=== PATIENT | female | born 1945 | race Hispanic/Latino ===

== ENCOUNTER 2018-01-13 16:33 | Inpatient (IN) | payer MEDICARE, OTHER ==
[2018-01-13 16:35] VITALS: BMI 24.5
[2018-01-13 17:28] LABS: BASO # 0.03 K/mm3 (0.0-2.0); BASO % 0.4 % (0.0-3.0); EOS # 0.2 (0.0-0.7); GRAN # 5.51 (1.4-6.5); GRAN % 73.1 % (50.0-68.0); HEMOGLOBIN 11.8 g/dL (12.0-16.0); LYMPH # 1.4 (1.2-3.4); LYMPH % 18.8 % (22.0-35.0); MEAN CELL VOLUME 91.6 fl (80.0-105.0); MEAN CORPUSCULAR HEMOGLOBIN 30.2 pg (25.0-35.0); MEAN PLATELET VOLUME 10.8 fl (7.0-11.0); MONO # 0.4 (0.1-0.6); MONO % 5.7 % (1.0-6.0); RBC 3.91 10^6/uL (3.5-6.1); RED CELL DISTRIBUTION WIDTH 15.1 % (11.5-14.5); WHITE BLOOD COUNT 7.5 10^3/ul (4.5-11.0)
[2018-01-13 17:36] LABS: ALB/GLOB RATIO 1.2 (1.1-1.8); ALT/SGPT 83 U/L (7-56); AST/SGOT 64 U/L (14-36); BLOOD UREA NITROGEN 16 mg/dL (7-21); CALCIUM 9.4 mg/dL (8.4-10.5); GFR AFRICAN-AMERICAN > 60; GFR NON-AFRICAN AMERICAN > 60
[2018-01-13 17:48] LABS: B-TYPE NATRIURETIC PEPTIDE 2350 pg/mL (0-450); TROPONIN I < 0.01 ng/mL
[2018-01-13 17:54] LABS: FREE T4 1.05 ng/dL (0.78-2.19)
--- NOTE | 2018-01-13 17:55 | ED PDOC ---
Arrival/HPI - General Chief Complaint: Shortness Of Breath Time Seen by Provider: 01/13/18 16:35 Historian: Patient - History of Present Illness Narrative History of Present Illness (Text): 01/13/18 16:45 72 year old female, with no significant past medical history, was referred to the Emergency department by Dr. Adams for abnormal CT scan of her chest and dyspnea on exertion for past few days. Patient states she was diagnosed with pleural effusion amidst to dyspnea on exertion. Patient denies any associated chest pain or any other somatic complaints. Patient denies any fever, chills, nausea, vomiting, diarrhea, abdominal pain, chest pain or any other complaints. PMD: Dr. Adams Time/Duration: < week Symptom Onset: Gradual Symptom Course: Unchanged Activities at Onset: Light Context: Exertion Past Medical History - Provider Review Nursing Documentation Reviewed: Yes - Infectious Disease Hx of Infectious Diseases: None - Cardiac Other/Comment: Heart valve problems - Pulmonary Hx Respiratory Disorders: No - Neurological Hx Neurological Disorder: No - HEENT Hx HEENT Disorder: No - Renal Hx Renal Disorder: No - Endocrine/Metabolic Hx Endocrine Disorders: No - Hematological/Oncological Hx Blood Disorders: No - Integumentary Hx Dermatological Disorder: No - Musculoskeletal/Rheumatological Hx Musculoskeletal Disorders: No - Gastrointestinal Hx Gastrointestinal Disorders: No - Genitourinary/Gynecological Other/Comment: ?chronic hematuria - Psychiatric Hx Psychophysiologic Disorder: No Hx Substance Use: No - Surgical History Hx Appendectomy: Yes Hx Cholecystectomy: Yes - Anesthesia Hx Anesthesia: Yes Hx Anesthesia Reactions: No Hx Malignant Hyperthermia: No Family/Social History - Physician Review Nursing Documentation Reviewed: Yes Family/Social History: No Known Family HX Smoking Status: Never Smoked Hx Alcohol Use: No Hx Substance Use: No Allergies/Home Meds Allergies/Adverse Reactions: Allergies No Known Allergies Allergy (Verified 01/13/18 16:35) Home Medications: Home Meds Medication Instructions Recorded Confirmed No Known Home Med 01/13/18 01/13/18 Review of Systems - Physician Review All systems were reviewed & negative as marked: Yes - Review of Systems Constitutional: Normal. absent: Fevers Eyes: Normal ENT: Normal Respiratory: Normal Cardiovascular: SIMMS. absent: Chest Pain Gastrointestinal: Normal. absent: Abdominal Pain, Diarrhea, Nausea, Vomiting Genitourinary Female: Normal Musculoskeletal: Normal Skin: Normal Neurological: Normal Endocrine: Normal Hemo/Lymphatic: Normal Psychiatric: Normal Physical Exam Vital Signs Reviewed: Yes Vital Signs Temp Pulse Resp BP Pulse Ox 01/13/18 20:36 112 H 17 136/96 H 100 01/13/18 18:23 126 H 143/106 H 01/13/18 18:22 143/106 H 01/13/18 18:11 133 H 24 143/106 H 96 01/13/18 16:59 97.7 F 115 H 20 150/55 L 97 01/13/18 16:41 97.6 F 18 138/99 H Temperature: Afebrile Blood Pressure: Hypertensive Pulse: Regular Respiratory Rate: Normal Appearance: Positive for: Well-Appearing, Non-Toxic, Comfortable Pain Distress: None Mental Status: Positive for: Alert and Oriented X 3 - Systems Exam Head: Present: Atraumatic, Normocephalic Pupils: Present: PERRL Extroacular Muscles: Present: EOMI Conjunctiva: Present: Normal Mouth: Present: Moist Mucous Membranes Neck: Present: Normal Range of Motion Respiratory/Chest: Present: Decreased Breath Sounds (bilaterally). No: Respiratory Distress, Accessory Muscle Use Cardiovascular: Present: Normal S1, S2, Irregular Rhythm (Irregularly irregular rhythm), Other (mild dyspnea while speaking). No: Murmurs Abdomen: Present: Normal Bowel Sounds. No: Tenderness, Distention, Peritoneal Signs Back: Present: Normal Inspection Upper Extremity: Present: Normal Inspection. No: Cyanosis, Edema Lower Extremity: Present: Normal Inspection. No: Edema Neurological: Present: GCS=15, CN II-XII Intact, Speech Normal Skin: Present: Warm, Dry, Normal Color. No: Rashes Psychiatric: Present: Alert, Oriented x 3, Normal Insight, Normal Concentration Medical Decision Making ED Course and Treatment: 01/13/18 16:46 Impression: 72 year old female referred to Emergency department for abnormal CT chest and dyspnea on exertion. Plan: -- EKG -- Labs -- Chest X-ray -- Reassess and disposition Progress Notes: 01/13/18 16:46 EKG: Ordered, reviewed, and independently interpreted the EKG. Rate : 115 BPM Rhythm : A-fib Interpretation : Normal axis. 01/13/18 17:[address] Adams, who recommends 20mg of Lasix via IV push and 50mg metoprolol PO. Patient will be admitted to Telemetry. Dr. Posadas was paged for admission. 01/13/18 18:[address] Posadas, who is aware and agrees with plan to admit patient to Telemetry. - Lab Interpretations Lab Results: 01/13/18 17:10 01/13/18 17:10 Lab Results 01/13/18 17:10: Free T4 1.05, Total T3 1.08, TSH 3rd Generation 14.90 H 01/13/18 17:10: Sodium 140, Potassium 4.0, Chloride 107, Carbon Dioxide 21, Anion Gap 16, BUN 16, Creatinine 0.8, Est GFR ( Amer) > 60, Est GFR (Non- Af Amer) > 60, Random Glucose 103, Calcium 9.4, Total Bilirubin 0.7, AST 64 H, ALT 83 H, Alkaline Phosphatase 66, Lactate Dehydrogenase 700 H, Total Creatine Kinase 117, Troponin I < 0.01, NT-Pro-B Natriuret Pep 2350 H, Total Protein 7.3 , Albumin 4.0, Globulin 3.2, Albumin/Globulin Ratio 1.2 01/13/18 17:10: WBC 7.5, RBC 3.91, Hgb 11.8 L, Hct 35.8 L, MCV 91.6, MCH 30.2, MCHC 33.0, RDW 15.1 H, Plt Count 262, MPV 10.8, Gran % 73.1 H, Lymph % (Auto) 18.8 L, [place] % (Auto) 5.7, Eos % (Auto) 2.0, Baso % (Auto) 0.4, Gran # 5.51, Lymph # (Auto) 1.4, [place] # (Auto) 0.4, Eos # (Auto) 0.2, Baso # (Auto) 0.03 - RAD Interpretation Radiology Orders: 01/13/18 16:45 CHEST PORTABLE [RAD] Stat - Medication Orders Current Medication Orders: Discontinued Medications Furosemide (Lasix) 20 mg IVP STAT STA Stop: 01/13/18 18:13 Last Admin: 01/13/18 18:22 Dose: 20 mg MAR Blood Pressure Document 01/13/18 18:22 SRE (Rec: 01/13/18 18:23 SRE [id number]) Blood Pressure Blood Pressure (100/60-150/90) 143/106 IVP Administration Document 01/13/18 18:22 SRE (Rec: 01/13/18 18:23 [id number] [id number]) Charges for Administration # of IVP Administrations 1 Metoprolol Tartrate (Lopressor) 50 mg PO STAT STA Stop: 01/13/18 18:13 Last Admin: 01/13/18 18:23 Dose: 50 mg MAR Pulse and Blood Pressure Document 01/13/18 18:23 SRE (Rec: 01/13/18 18:23 SRE [id number]) Pulse Pulse Rate (60-90) 126 Blood Pressure Blood Pressure (100/60-150/90) 143/106 - Scribe Statement The provider has reviewed the documentation as recorded by the Scribe Ijeoma Hernandez. All medical record entries made by the Scribe were at my direction and personally dictated by me. I have reviewed the chart and agree that the record accurately reflects my personal performance of the history, physical exam, medical decision making, and the department course for this patient. I have also personally directed, reviewed, and agree with the discharge instructions and disposition. Disposition/Present on Arrival - Present on Arrival Any Indicators Present on Arrival: No History of DVT/PE: No History of Uncontrolled Diabetes: No Urinary Catheter: No History of Decub. Ulcer: No History Surgical Site Infection Following: None - Disposition Have Diagnosis and Disposition been Completed?: Yes Diagnosis: Pleural effusion due to CHF (congestive heart failure) Disposition: HOSPITALIZED Disposition Time: 17:50 Condition: FAIR
[2018-01-13 18:08] LABS: T3 1.08 ng/mL (0.97-1.69)
[2018-01-13] MEDS ORDERED: Iohexol 350 MG/100 ML VIAL ONE (19:43)
--- NOTE | 2018-01-13 20:16 | CARD ---
APPROVED REPORT EKG Measurement Heart [id number] <Conclusion> Atrial fibrillation with rapid ventricular response Anteroseptal infarct, age undetermined Abnormal ECG
[2018-01-13] MEDS ORDERED: Metoprolol 1 mg/ml Inj IVP PRN ×2 (21:45→23:46)
--- NOTE | 2018-01-13 23:51 | CP.PCM.PN ---
Subjective - Date & Time of Evaluation Date of Evaluation: 01/13/18 Time of Evaluation: 23:49 - Subjective Subjective: Nurse tells me that patient's BP was 140/107. She received 0.25 mg lopressor IV. Now BP is 148/108.HR 115-120/min.Atrial fibrillation. Patient seen. She has no complaints. No headache, no dizziness, no chest pain, no sob, no paraesthesia, no weakness. Medical record was reviewed. 72 year old woman was admitted with dyspnea on exertion, plerual effusion,CHF. Has PMH of heart valve problem, appendectomy, cholecystectomy. Objective - Vital Signs/Intake and Output Vital Signs (last 24 hours): Temp Pulse Resp BP Pulse Ox 98.0 F 135 H 17 148/108 H 99 01/13/18 20:53 01/13/18 23:11 01/13/18 20:53 01/13/18 23:11 01/13/18 20:53 - Medications Medications: Current Medications Alprazolam (Xanax) 0.25 mg PO HS PRN; Protocol PRN Reason: Sleep Stop: 01/20/18 22:01 Metoprolol Tartrate (Lopressor) 2.5 mg IVP Q8 PRN PRN Reason: Heart rate Stop: 01/18/18 21:46 - Labs Labs: Most Recent Lab Values WBC 7.5 10^3/ul (4.5-11.0) 01/13/18 17:10 RBC 3.91 10^6/uL (3.5-6.1) 01/13/18 17:10 Hgb 11.8 g/dL (12.0-16.0) L 01/13/18 17:10 Hct 35.8 % (36.0-48.0) L 01/13/18 17:10 MCV 91.6 fl (80.0-105.0) 01/13/18 17:10 MCH 30.2 pg (25.0-35.0) 01/13/18 17:10 MCHC 33.0 g/dl (31.0-37.0) 01/13/18 17:10 RDW 15.1 % (11.5-14.5) H 01/13/18 17:10 Plt Count 262 10^3/uL (120.0-450.0) 01/13/18 17:10 MPV 10.8 fl (7.0-11.0) 01/13/18 17:10 Gran % 73.1 % (50.0-68.0) H 01/13/18 17:10 Lymph % (Auto) 18.8 % (22.0-35.0) L 01/13/18 17:10 [place] % (Auto) 5.7 % (1.0-6.0) 01/13/18 17:10 Eos % (Auto) 2.0 % (1.5-5.0) 01/13/18 17:10 Baso % (Auto) 0.4 % (0.0-3.0) 01/13/18 17:10 Gran # 5.51 (1.4-6.5) 01/13/18 17:10 Lymph # (Auto) 1.4 (1.2-3.4) 01/13/18 17:10 [place] # (Auto) 0.4 (0.1-0.6) 01/13/18 17:10 Eos # (Auto) 0.2 (0.0-0.7) 01/13/18 17:10 Baso # (Auto) 0.03 K/mm3 (0.0-2.0) 01/13/18 17:10 D-Dimer, Quantitative 670 ng/mL (0-243) H 01/13/18 19:00 Sodium 140 mmol/L (132-148) 01/13/18 17:10 Potassium 4.0 mmol/L (3.6-5.0) 01/13/18 17:10 Chloride 107 mmol/L (98-107) 01/13/18 17:10 Carbon Dioxide 21 mmol/L (21-33) 01/13/18 17:10 Anion Gap 16 (10-20) 01/13/18 17:10 BUN 16 mg/dL (7-21) 01/13/18 17:10 Creatinine 0.8 mg/dl (0.7-1.2) 01/13/18 17:10 Est GFR ( Amer) > 60 01/13/18 17:10 Est GFR (Non-Af Amer) > 60 01/13/18 17:10 Random Glucose 103 mg/dL (70-110) 01/13/18 17:10 Calcium 9.4 mg/dL (8.4-10.5) 01/13/18 17:10 Total Bilirubin 0.7 mg/dL (0.2-1.3) 01/13/18 17:10 AST 64 U/L (14-36) H 01/13/18 17:10 ALT 83 U/L (7-56) H 01/13/18 17:10 Alkaline Phosphatase 66 U/L (38-126) 01/13/18 17:10 Lactate Dehydrogenase 700 U/L (333-699) H 01/13/18 17:10 Total Creatine Kinase 117 U/L (35-230) 01/13/18 17:10 Troponin I < 0.01 ng/mL 01/13/18 17:10 NT-Pro-B Natriuret Pep 2350 pg/mL (0-450) H 01/13/18 17:10 Total Protein 7.3 g/dL (5.8-8.3) 01/13/18 17:10 Albumin 4.0 g/dL (3.0-4.8) 01/13/18 17:10 Globulin 3.2 gm/dL 01/13/18 17:10 Albumin/Globulin Ratio 1.2 (1.1-1.8) 01/13/18 17:10 Free T4 1.05 ng/dL (0.78-2.19) 01/13/18 17:10 Total T3 1.08 ng/mL (0.97-1.69) 01/13/18 17:10 TSH 3rd Generation 14.90 mIU/mL (0.46-4.68) H 01/13/18 17:10 - Constitutional Appears: Well, No Acute Distress - Head Exam Head Exam: ATRAUMATIC, NORMAL INSPECTION, NORMOCEPHALIC Assessment and Plan - Assessment and Plan (Free Text) Assessment: Elevated blood pressure reading. Atrial fibrillation RVR. CHF. Pleural effusion. Borderline anemia. Elevated D-dimer. Elevated BNP. Plan: Change order for IV lopressor to 2.5 mg IV q8h prn. May need GI / DVT prophylaxis.
[2018-01-14 07:54] LABS: BLOOD UREA NITROGEN 15 mg/dL (7-21); CALCIUM 8.9 mg/dL (8.4-10.5); GFR AFRICAN-AMERICAN > 60; GFR NON-AFRICAN AMERICAN > 60
[2018-01-14] MEDS: Enoxaparin 60 mg Syringe SC SCH ×2 (09:19→20:46)
--- NOTE | 2018-01-14 09:47 | CT ---
PROCEDURE: CT Chest with contrast (Pulmonary Angiogram) HISTORY: r/o PE COMPARISON: None available. TECHNIQUE: Axial computed tomography images were obtained of the chest in the pulmonary arterial phase of enhancement. Coronal and sagittal reformatted images were created and reviewed. Intravenous contrast dose: 100 cc Omnipaque 350 Mean Hounsfield unit values in the main pulmonary artery: 412.14 Radiation dose: Total exam DLP = 251.32 mGy-cm. This CT exam was performed using one or more of the following dose reduction techniques: Automated exposure control, adjustment of the mA and/or kV according to patient size, and/or use of iterative reconstruction technique. FINDINGS: PULMONARY ARTERIES: Unremarkable. No pulmonary embolism. AORTA: No acute findings. No thoracic aortic aneurysm. LUNGS: Compressive atelectasis related to pleural effusions primarily affecting right lower lobe and to lesser extent left lower lobe. PLEURAL SPACES: Bilateral pleural effusions right larger than left. HEART: Unremarkable. No cardiomegaly. No significant pericardial effusion. LYMPH NODES: No lymphadenopathy. BONES, CHEST WALL: Unremarkable. No fracture or destructive lesion OTHER FINDINGS: Unremarkable. IMPRESSION: Unremarkable CT pulmonary angiogram. No pulmonary embolus. Bilateral pleural effusions right larger than left and associated compressive atelectasis both lower lobes. Concordant results (preliminary interpretation) provided by [employer] (now [employer]). Procedure Completed: 20:26 Preliminary ([facility]) Report: Dictated and Authenticated: 20:50 Final Interpretation: 09:45 January 14, 2018.
--- NOTE | 2018-01-14 10:11 | RAD ---
HISTORY: shortness of breath COMPARISON: January 14, 2018. CT thorax FINDINGS: LUNGS: Lower lobe consolidative changes bilaterally right greater than left. PLEURA: Effusions bilateral pleural effusions right larger than left. CARDIOVASCULAR: No radiographic findings to suggest acute or significant cardiovascular disease. OSSEOUS STRUCTURES: No significant abnormalities. VISUALIZED UPPER ABDOMEN: Normal. OTHER FINDINGS: None. IMPRESSION: Bilateral pleural effusions left larger than right associated compressive atelectasis both lower lobes.
--- NOTE | 2018-01-14 15:39 | CARD ---
APPROVED REPORT EKG Measurement Heart [id number] <Conclusion> Atrial fibrillation with rapid ventricular response Septal infarct, age undetermined Abnormal ECG
[2018-01-14] MEDS ORDERED: Potassium Chloride 20 mEq ER Tab PO ONE (16:00)
--- NOTE | 2018-01-14 18:26 | CON ---
DATE: 01/14/2018 INDICATIONS: Pleural effusion, atrial fibrillation, new onset. HISTORY OF PRESENT ILLNESS: This is a 72-year-old woman with several weeks of indigestion and not feeling well with recent dyspnea. She was found to have atrial fibrillation with rapid ventricular response. Echocardiography demonstrated moderately severe mitral regurgitation and severe tricuspid regurgitation with low normal ejection fraction. She was started on metoprolol. Plans were made for cardiac catheterization. CAT scan of the chest was done because of a history of a pulmonary nodule. This demonstrated moderate bilateral pleural effusions. She noted increasing shortness of breath. She was admitted for further evaluation and diuresis as well as rate control with plans for a cardiac catheterization on Tuesday. There was no chest pain, orthopnea, PND, syncope, palpitations, edema, claudication, fever, chills, cough, sputum production, hemoptysis, abdominal pain, nausea, vomiting, diarrhea, constipation, or melena. PAST MEDICAL HISTORY: Notable for appendectomy and gallbladder surgery. She has a pulmonary nodule. There was no history of cardiac problems including rheumatic fever, myocardial infarction, angina, congestive heart failure, prior arrhythmia. There was no history of stroke, TIA, diabetes, hypertension, hyperlipidemia, or gout. MEDICATIONS: At the time of admission were metoprolol. ALLERGIES: THERE WERE NO KNOWN MEDICATION ALLERGIES. FAMILY HISTORY: Noncontributory. SOCIAL HISTORY: She lives at home with her . She does not smoke. She does not drink alcohol significantly. She is ambulatory. REVIEW OF SYSTEMS: A 10-point review of systems otherwise unremarkable except as noted above. PHYSICAL EXAMINATION: GENERAL: She is well-developed woman, lying in bed on telemetry, in no acute distress, surrounded by her family. VITAL SIGNS: Notable for atrial fibrillation, currently at 113 beats per minute. She is afebrile, blood pressure 143/93, respirations 17 to 24, O2 sat 96% to 99% on room air and nasal cannula. HEENT: Reveals no neck vein distention, thyromegaly, or carotid bruits. Mucous membranes are moist. Conjunctivae pink. NECK: Supple. LUNGS: [place], diminished breath sounds at the bases. HEART: Revealed irregular rhythm. Soft systolic murmur along the left sternal border. ABDOMEN: Soft. Bowel sounds present. No mass, organomegaly, tenderness, rebound, guarding, CVA tenderness, palpable abdominal aortic aneurysm. EXTREMITIES: Revealed no cyanosis, clubbing, or edema. NEUROLOGIC: She is awake, alert, and oriented. SKIN: Warm and dry. No rash or cellulitis. PSYCHIATRIC: Normal as to mood and affect. LABORATORY AND IMAGING: Chest x-ray showed bilateral pleural effusions. CT scan of the chest was done, results are pending. Apparently, the [facility] read it as negative, although I do not have documentation of that. EKG demonstrates atrial fibrillation, rapid ventricular response, nonspecific ST-wave changes. White count normal, hemoglobin 11.8, hematocrit 35.8, and platelet count is 262,000. D-dimer was elevated at 670. Electrolytes, BUN, creatinine, blood sugar unremarkable. AST and ALT are mildly elevated. Alk phos is normal. LDH is elevated at 700. CK is 117. Troponin less than 0.01. BNP is 2350. T4 and T3 are normal. TSH is elevated at 14.9. IMPRESSION: Ryan Umanzor is a 72-year-old woman with several weeks of symptoms, found to have atrial fibrillation, rapid ventricular response, moderately severe mitral regurgitation, and severe tricuspid regurgitation on her echocardiography. She has bilateral pleural effusions on chest x-ray and CT scanning. She is admitted for diuresis and rate control with plans for a cardiac catheterization on Tuesday. PLAN: She is admitted to Telemetry. She will get IV Lasix and p.o. metoprolol. We will titrate the doses. We will monitor strict I and O. I will give her Lovenox. She has an elevated TSH, this will be addressed once her cardiac status is stabilized. I wait the results of the CT angiogram that was done last night. She can be out of bed to chair. We will check stool for occult blood. We will monitor labs and make additional recommendations based on her clinical course. I have discussed all aspects of her case with her and her sons who were at the bedside today as well as with her by telephone several times yesterday and during recent office visits. Zackery Adams MD DEBORAH
--- NOTE | 2018-01-14 23:09 | US ---
HISTORY: Leg pain and swelling. Evaluate for DVT PHYSICIAN(S): Smith Da Silva MD. TECHNIQUE: Duplex sonography and color-flow Doppler with graded compression were used to evaluate the deep venous systems of both lower extremities. FINDINGS: The visualized deep venous systems of both lower extremities are sonographically normal and compressible. Normal wave forms and augmentation are seen. There is no sonographic evidence for deep venous thrombosis in the visualized segments of both lower extremities. IMPRESSION: No sonographic evidence for deep venous thrombosis in the visualized segments of both lower extremities.
--- NOTE | 2018-01-15 06:58 | HP ---
CHIEF COMPLAINT AND HISTORY OF PRESENT ILLNESS: This is a 72-year-old female who has come into the hospital because of shortness of breath. The patient was sent to the ER by Dr. Adams after he evaluated the patient in his office. She was having worsening shortness of breath in the past few days. She was found to have CHF. The patient was admitted for evaluation. She did not have any chest pain. She had no fevers or chills. No nausea. No vomiting. No headaches. No dizziness. No back pain. No abdominal pain. No dysuria or frequency. No nocturia. She was having worsening shortness of breath when she ambulated. The patient had an echo that showed [id number] mitral regurg and severe tricuspid regurg done by Dr. Adams. REVIEW OF SYSTEMS: All other review of symptoms are within normal limits except what is mentioned. ALLERGIES: NO KNOWN DRUG ALLERGIES. HOME MEDICATIONS: None. FAMILY HISTORY: Noncontributory. SOCIAL HISTORY: She lives at home with her . She does not smoke, drink, or use drugs. She ambulates well. PAST SURGICAL HISTORY: Appendectomy, cholecystectomy. PAST MEDICAL HISTORY: Pulmonary nodule. PHYSICAL EXAMINATION: VITAL SIGNS: She has a temperature of 98.5, pulse of 105, blood pressure 111/77, respirations 18. Height is 5 feet and 1 inch. Weight is 122 pounds. BMI is 23. GENERAL: The patient lying in bed, uncomfortable, and in no acute distress. HEENT: Atraumatic and normocephalic. Anicteric sclerae. Moist mucosa. [place] conjunctivae. No oral lesions. NECK: No JVD, anterior and posterior adenopathy, thyromegaly, or bruits. CARDIOVASCULAR: S1 and S2 regular. No murmur, rubs, or gallop. LUNGS: Clear to auscultation bilaterally. No wheezes, rales, or rhonchi. ABDOMEN: Bowel sounds are positive. Soft, nontender and nondistended. No hepatosplenomegaly. No rebound and no guarding. EXTREMITIES: No cyanosis, clubbing, or edema. NEUROLOGIC: No facial asymmetry. Tongue is midline. No uvula deviation. Power is 5/5 upper extremity and lower extremity. Sensation intact in upper extremity and lower extremity. PSYCHIATRIC: She is awake, alert and oriented x3. No anxiety or depression. She has normal affect. GENITOURINARY: No CVA tenderness. VASCULAR: 2+ pulses in the carotid pulses and pedal pulses. SKIN: No erythema or nodules. SPINE: Shows normal curvature. LABORATORY DATA: White count of 7.5, hemoglobin D-dimer 670. Creatinine is 0.8. TSH is 14. Rest of the labs have been reviewed. Chest x-ray done shows bilateral pleural effusion, left greater than right associated with atelectasis. EKG shows atrial fibrillation with rapid rate. CT done of the chest shows bilateral pleural effusion, right larger than left. ASSESSMENT: 1. Acute congestive heart failure secondary to systolic dysfunction. 2. Bilateral pleural effusion, right greater than left. 3. Atrial fibrillation with rapid rate. 4. Hypothyroidism. 5. Eofdjzvq-bq-[id number] mitral regurgitation. 6. Severe tricuspid regurgitation. PLAN: The patient is going to be admitted to the hospital with shortness of breath. She has bilateral pleural effusion. She has proBNP that is elevated at 2350. Apparently, she had an echo done in Dr. Adams's office that showed severe mitral regurgitation and tricuspid regurgitation. The patient is going to be placed on IV diuretic therapy with Lasix. She was given metoprolol. She has atrial fibrillation that is better controlled. She is on Lovenox for anticoagulation. She is on Xanax therapy as needed. She has lower extremity Dopplers that have been ordered. She is on the heart-healthy diet. I did speak to the patient's and son this morning to give them an update on the patient's diagnoses and plan of care. I also spoke with Dr. Adams regarding the case. She will have repeat blood work done tomorrow. She will continue to be diuresed. Rajan Dorsey MD
[2018-01-15 07:29] LABS: BLOOD UREA NITROGEN 19 mg/dL (7-21); GFR AFRICAN-AMERICAN > 60; GFR NON-AFRICAN AMERICAN > 60
--- NOTE | 2018-01-15 08:47 | CP.PCM.PN ---
Subjective - Date & Time of Evaluation Date of Evaluation: 01/15/18 Time of Evaluation: 07:00 - Subjective Subjective: Stable on 3R. Son present. No CP or sob. She feels better but felt some palps yesterday PM. V/S noted AF PE: Lungs: clear. Decreased BS at bases Cor.: irreg S1S2 Abd.: soft Ext.; no edema Neuro.; alert I/O = 1240/2200 recorded Labs: K+= 3.5 ECG01/14: AF, No change LE ophelia Dopps: No DVT Chest CT: No PE, etc Objective - Vital Signs/Intake and Output Vital Signs (last 24 hours): Temp Pulse Resp BP Pulse Ox 97.6 F 91 H 18 102/70 95 01/15/18 06:00 01/15/18 06:00 01/15/18 06:00 01/15/18 06:00 01/15/18 06:00 Intake and Output: 01/15/18 01/15/18 06:59 18:59 Intake Total 640 Output Total 450 Balance 190 - Medications Medications: Current Medications Alprazolam (Xanax) 0.25 mg PO HS PRN; Protocol PRN Reason: Sleep Stop: 01/20/18 22:01 Last Admin: 01/14/18 22:05 Dose: 0.25 mg Enoxaparin Sodium (Lovenox) 60 mg SC Q12H [facility] PRN Reason: Protocol Last Admin: 01/14/18 20:46 Dose: 60 mg Furosemide (Lasix) 40 mg IVP DAILY [facility] Last Admin: 01/14/18 09:19 Dose: 40 mg Metoprolol Tartrate (Lopressor) 2.5 mg IVP Q8 PRN PRN Reason: Heart rate Stop: 01/18/18 21:46 Last Admin: 01/14/18 00:15 Dose: 2.5 mg Metoprolol Tartrate (Lopressor) 75 mg PO BID [facility] Last Admin: 01/14/18 18:43 Dose: 75 mg - Labs Labs: 01/15/18 06:25 Assessment and Plan - Assessment and Plan (Free Text) Assessment: Dyspnea AF with RVR Mod severe MR and severe TR on echo Pleural effusions, moderate, bilateral Hypothyroidism Pulmonary nodule Plan: Increase metoprolol to 100 BID Lasix IV PO KCL OOB F/U CXR tomorrow Plan cardiac cath for [facility].
[2018-01-15] MEDS: Enoxaparin 60 mg Syringe SC SCH ×2 (08:48→21:09)
[2018-01-15] MEDS: Potassium Chloride 20 mEq ER Tab PO SCH ×2 (09:11→18:07)
--- NOTE | 2018-01-15 20:30 | PN ---
DATE: 01/15/2018 SUBJECTIVE: The patient has no complaints of any chest pain. No shortness of breath. No headaches. She states she does have episodes of tachycardia and palpitations at times. PHYSICAL EXAMINATION: VITAL SIGNS: Temperature is 98.6, pulse of 65, blood pressure is 98/64, respirations 18. GENERAL: The patient is lying in bed, flat, comfortable. HEENT: No oral lesion. Anicteric sclerae. Moist mucosa. NECK: No JVD, adenopathy, or thyromegaly. CARDIOVASCULAR: S1 and S2, regular. No murmurs, rubs, or gallops. LUNGS: Clear to auscultation bilaterally. No wheeze, rales, or rhonchi. ABDOMEN: Bowel sounds are positive, soft, nontender and nondistended. EXTREMITIES: No cyanosis, clubbing or edema. ASSESSMENT: 1. Acute congestive heart failure secondary to systolic dysfunction. 2. Atrial fibrillation with rapid rate. 3. Bilateral pleural effusion, right greater than left. 4. Hypothyroidism. 5. Razgryze-vz-zyblma mitral regurgitation. 6. Severe tricuspid regurgitation. PLAN: The patient is currently comfortable. She has a negative fluid balance. The patient's potassium is 3.5. The patient's TSH is elevated. She is on a heart-healthy diet. She is being followed by Dr. Adams. I did speak to the patient's to give him an update on the patient's diagnoses and plan of care. Her metoprolol had been increased. She is on Lovenox for anticoagulation. She is on potassium replacement. Rajan Dorsey MD
[2018-01-16] MEDS: Levothyroxine 50 MCG TAB PO SCH ×3 (05:43→06:08)
[2018-01-16 07:32] LABS: BLOOD UREA NITROGEN 19 mg/dL (7-21); CALCIUM 9.2 mg/dL (8.4-10.5); GFR AFRICAN-AMERICAN > 60; GFR NON-AFRICAN AMERICAN > 60
--- NOTE | 2018-01-16 08:42 | CP.PCM.PN ---
Subjective - Date & Time of Evaluation Date of Evaluation: 01/16/18 Time of Evaluation: 07:00 - Subjective Subjective: Stable on 3R. She feels much better. No CP or sob. V/S noted AF, mod VR PE: Lungs: clear. Decreased BS at bases Cor.: irreg S1S2 Abd.: soft Ext.; no edema Neuro.; alert I/O = 2500 cc. out reported. Labs: K+= 3.8 ECG 01/14: AF, No change LE ophelia Dopps: No DVT Chest CT: No PE, etc Objective - Vital Signs/Intake and Output Vital Signs (last 24 hours): Temp Pulse Resp BP Pulse Ox 98 F 74 18 105/78 94 L 01/16/18 06:00 01/16/18 06:00 01/16/18 06:00 01/16/18 06:00 01/16/18 06:00 Intake and Output: 01/16/18 01/16/18 06:59 18:59 Intake Total 720 Output Total 500 Balance 220 - Medications Medications: Current Medications Alprazolam (Xanax) 0.25 mg PO HS PRN; Protocol PRN Reason: Sleep Stop: 01/20/18 22:01 Last Admin: 01/14/18 22:05 Dose: 0.25 mg Enoxaparin Sodium (Lovenox) 60 mg SC Q12H [facility] PRN Reason: Protocol Last Admin: 01/15/18 21:09 Dose: 60 mg Furosemide (Lasix) 40 mg IVP DAILY [facility] Last Admin: 01/15/18 09:11 Dose: 40 mg Levothyroxine Sodium (Synthroid) 50 mcg PO 0600 [facility] Last Admin: 01/16/18 06:08 Dose: 50 mcg Metoprolol Tartrate (Lopressor) 2.5 mg IVP Q8 PRN PRN Reason: Heart rate Stop: 01/18/18 21:46 Last Admin: 01/14/18 00:15 Dose: 2.5 mg Metoprolol Tartrate (Lopressor) 100 mg PO BID [facility] Last Admin: 01/15/18 18:07 Dose: 100 mg Potassium Chloride (K-Dur 20 Meq Er Tab) 20 meq PO BID [facility] Last Admin: 01/15/18 18:07 Dose: 20 meq - Labs Labs: 01/16/18 06:30 Assessment and Plan - Assessment and Plan (Free Text) Assessment: Dyspnea, improved AF with RVR Mod severe MR and severe TR on echo Pleural effusions, moderate, bilateral Hypothyroidism Pulmonary nodule Plan: Continue metoprolol to 100 BID Lasix IV PO KCL OOB F/U CXR today Plan possible cardiac cath for Tues. Synthroid as per Dr. Dorsey.
[2018-01-16] MEDS: Enoxaparin 60 mg Syringe SC SCH ×2 (08:50→21:56)
[2018-01-16] MEDS: Potassium Chloride 20 mEq ER Tab PO SCH ×2 (11:19→17:18)
--- NOTE | 2018-01-16 11:51 | RAD ---
Radiographs of the chest AP and lateral radiographs of the chest were obtained. Comparison: 01/13/2018 Findings: The lungs are well inflated. There is bibasilar airspace disease. There are small pleural effusions. No pneumothorax. The heart is normal in size. The visualized bones are within normal limits for the patient's age. Impression: Bilateral pleural effusions. Bibasilar airspace disease may represent atelectasis or pneumonia.
--- NOTE | 2018-01-16 13:37 | PN ---
DATE: SUBJECTIVE: The patient has no complaints of any chest pain. No shortness of breath, no headaches. PHYSICAL EXAMINATION: VITAL SIGNS: Temperature is 98, pulse is 74, blood pressure is 105/78, and respirations 18. GENERAL: The patient is lying in bed, flat, comfortable. HEENT: No oral lesion. Anicteric sclerae. Moist mucosa. NECK: No JVD, adenopathy, or thyromegaly. CARDIOVASCULAR: S1 and S2, regular. No murmurs, rubs, or gallops. LUNGS: Clear to auscultation bilaterally. No wheeze, rales, or rhonchi. ABDOMEN: Bowel sounds are positive, soft, nontender and nondistended. EXTREMITIES: no cyanosis, clubbing or edema. LABORATORY DATA: White count is 7.5, hemoglobin 11.8, and creatinine is 0.9. ASSESSMENT: 1. Acute congestive heart failure secondary to systolic dysfunction. 2. Atrial fibrillation. 3. Bilateral pleural effusion, right greater than left. 4. Hypothyroidism. 5. Moderate to severe mitral regurgitation. 6. Severe tricuspid regurgitation. PLAN: The patient is on Lovenox for anticoagulation. She is on Synthroid for hypothyroidism. The patient is on Xanax as needed. She is receiving Lasix daily. She is on potassium replacement. The patient has a negative 180 mL balance. Not sure how accurate this is. She is on a heart-healthy diet. She is going to have a cardiac catheterization done tomorrow. Rajan Dorsey MD
[2018-01-17] MEDS: Levothyroxine 50 MCG TAB PO SCH (06:48)
--- NOTE | 2018-01-17 08:18 | CP.PCM.PN ---
Subjective - Date & Time of Evaluation Date of Evaluation: 01/17/18 Time of Evaluation: 07:00 - Subjective Subjective: Stable on 3R. She feels much better. No CP or sob. V/S noted AF, mod VR 74 - 96 BPM PE: Lungs: clear. Cor.: irreg S1S2, sys. murmur Abd.: soft Ext.; no edema Neuro.; alert I/O = 2750 cc. out, reported. Labs 01/16: K+= 3.8 ECG 01/14: AF, No change LE ophelia Dopps: No DVT Chest CT: No PE, etc Objective - Vital Signs/Intake and Output Vital Signs (last 24 hours): Temp Pulse Resp BP Pulse Ox 97.1 F L 81 20 125/86 96 01/17/18 06:00 01/17/18 06:00 01/17/18 06:00 01/17/18 06:00 01/17/18 00:01 Intake and Output: 01/17/18 01/17/18 06:59 18:59 Intake Total 180 Output Total 700 Balance -520 - Medications Medications: Current Medications Alprazolam (Xanax) 0.25 mg PO HS PRN; Protocol PRN Reason: Sleep Stop: 01/20/18 22:01 Last Admin: 01/16/18 21:55 Dose: 0.25 mg Enoxaparin Sodium (Lovenox) 60 mg SC Q12H [facility] PRN Reason: Protocol Last Admin: 01/16/18 21:56 Dose: 60 mg Furosemide (Lasix) 40 mg IVP DAILY [facility] Last Admin: 01/16/18 11:52 Dose: 40 mg Levothyroxine Sodium (Synthroid) 50 mcg PO 0600 [facility] Last Admin: 01/17/18 06:48 Dose: 50 mcg Metoprolol Tartrate (Lopressor) 2.5 mg IVP Q8 PRN PRN Reason: Heart rate Stop: 01/18/18 21:46 Last Admin: 01/14/18 00:15 Dose: 2.5 mg Metoprolol Tartrate (Lopressor) 100 mg PO BID [facility] Last Admin: 01/16/18 17:18 Dose: 100 mg Potassium Chloride (K-Dur 20 Meq Er Tab) 20 meq PO BID [facility] Last Admin: 01/16/18 17:18 Dose: 20 meq - Labs Labs: 01/16/18 06:30 Assessment and Plan - Assessment and Plan (Free Text) Assessment: Dyspnea, improved AF with RVR, improved Mod severe MR and severe TR on echo Pleural effusions, moderate, bilateral, improved Hypothyroidism Pulmonary nodule Plan: Continue metoprolol to 100 BID Lasix IV today PO KCL OOB R+L ht cath with cor angios in AM. Additional recs to follow
[2018-01-17] MEDS: Enoxaparin 60 mg Syringe SC SCH (09:30)
[2018-01-17] MEDS: Potassium Chloride 20 mEq ER Tab PO SCH ×2 (09:31→17:13)
--- NOTE | 2018-01-17 16:44 | PN ---
DATE: 01/17/2018 SUBJECTIVE: The patient has no complaints of any chest pain. No shortness of breath. No headache. PHYSICAL EXAMINATION: VITAL SIGNS: Temperature is 98.4, pulse of 90, blood pressure is 100/60, respirations 20. GENERAL: The patient is lying in bed, flat, comfortable. HEENT: No oral lesion. Anicteric sclerae. Moist mucosa. NECK: No JVD, adenopathy, or thyromegaly. CARDIOVASCULAR: S1 and S2, regular. No murmurs, rubs, or gallops. LUNGS: Clear to auscultation bilaterally. No wheeze, rales, or rhonchi. ABDOMEN: Bowel sounds are positive, soft, nontender and nondistended. EXTREMITIES: No cyanosis, clubbing or edema. LABORATORY DATA: White count of 7.5, hemoglobin 11.8. Creatinine 0.9. Chest x-ray done shows bilateral pleural effusion. ASSESSMENT: 1. Acute congestive heart failure secondary to systolic dysfunction. 2. Atrial fibrillation. 3. Bilateral pleural effusion, right greater than left. 4. Hypothyroidism. 5. Moderate to severe mitral regurgitation. 6. Severe tricuspid regurgitation. PLAN: The patient is currently comfortable. We are going to continue with Lasix. The patient is having negative fluid balance. The patient is on potassium replacement. She is on metoprolol. She is going to be on Synthroid for hypothyroidism. She is due for cardiac cath and she gets Xanax as needed in the evening time. She is on a heart-healthy diet. I did speak to Dr. Adams regarding the case. The patient will continue current treatment. Rajan Dorsey MD
[2018-01-18] MEDS: Levothyroxine 50 MCG TAB PO SCH (05:47)
[2018-01-18 07:03] LABS: INR 1.03 (0.93-1.08); PROTHROMBIN TIME 11.9 SECONDS (9.4-12.5)
[2018-01-18 07:05] LABS: BLOOD UREA NITROGEN 20 mg/dL (7-21); CALCIUM 9.4 mg/dL (8.4-10.5); GFR AFRICAN-AMERICAN > 60; GFR NON-AFRICAN AMERICAN 54
--- NOTE | 2018-01-18 07:47 | RAD ---
HISTORY: F/U pleural effusions COMPARISON: Chest radiographs 01/16/2018. TECHNIQUE: Chest PA and lateral FINDINGS: LUNGS: Mild lateral pleural effusions persist and are not significantly changed in the interval. Underlying atelectasis or infiltrates are not excluded bilaterally. No pneumothorax bilaterally. PLEURA: As above. CARDIOVASCULAR: Cardiac silhouette appears stable. No pulmonary vascular derangement appreciated. OSSEOUS STRUCTURES: No significant abnormalities. VISUALIZED UPPER ABDOMEN: Normal. OTHER FINDINGS: None. IMPRESSION: Stable mild bilateral pleural effusions with underlying atelectasis or infiltrates remaining difficult to exclude.
[2018-01-18] MEDS ORDERED: Phenylephrine 10 mg/ml Inj ONE (08:12)
[2018-01-18] MEDS ORDERED: Lidocaine 2% Inj (20ml) ONE (08:12)
[2018-01-18] MEDS ORDERED: Iodixanol 320 MG/ML 100 ML BOTTLE IV ONE (08:13)
[2018-01-18] MEDS ORDERED: Iohexol 350mgl/ml 50 ML ONE (08:13)
[2018-01-18] MEDS ORDERED: Midazolam 2 MG/2 ML VIAL ONE (08:21)
--- NOTE | 2018-01-18 08:54 | PN ---
DATE: SUBJECTIVE: The patient has no complaints of any chest pain, no shortness of breath, no headaches. PHYSICAL EXAMINATION: VITAL SIGNS: Temperature is 97.8, pulse of 73, blood pressure 113/89, respirations 19, O2 saturation 94%. GENERAL: The patient is lying in bed, flat, comfortable. HEENT: No oral lesion. Anicteric sclerae. Moist mucosa. NECK: No JVD, adenopathy, or thyromegaly. CARDIOVASCULAR: S1 and S2, regular. No murmurs, rubs, or gallops. LUNGS: Clear to auscultation bilaterally. No wheeze, rales, or rhonchi. ABDOMEN: Bowel sounds are positive, soft, nontender and nondistended. EXTREMITIES: No cyanosis, clubbing or edema. ASSESSMENT: 1. Acute congestive heart failure secondary to systolic dysfunction. 2. Atrial fibrillation. 3. Bilateral pleural effusion, right greater than left. 4. Hypothyroidism. 5. Moderate to severe mitral regurgitation. 6. Severe tricuspid regurgitation. PLAN: The patient is currently on potassium replacement. She is on Lasix daily for the pleural effusion. She is on metoprolol. She is on Lovenox for anticoagulation. The patient is on Synthroid for hypothyroidism. She is going for a cardiac cath today. We will await further input from the cardiac cath. Rajan Dorsey MD
[2018-01-18] MEDS ORDERED: Digoxin 500 mcg/2ml (0.5 mg/2ml) Inj ONE (09:29)
[2018-01-18] MEDS ORDERED: Sodium Chloride 0.9% 1,000 ML IV SCH (09:30)
[2018-01-18] MEDS: Potassium Chloride 20 mEq ER Tab PO SCH ×3 (10:35→18:52)
--- NOTE | 2018-01-18 14:17 | CARDCATH ---
PROCEDURE DATE: PROCEDURES: 1. Right and left heart catheterization. 2. Selective left and right coronary angiography. 3. Left ventriculography. 4. Right femoral arteriography. 5. Mynx deployment. HISTORY: This is a 72-year-old woman with recent onset congestive heart failure, atrial fibrillation, noted to have evidence of mitral regurgitation and LV dysfunction. Cardiac catheterization was recommended. INDICATION: Congestive heart failure. Mitral regurgitation. FINDINGS: HEMODYNAMICS: The right heart pressures were as follows. The RA mean pressure was 4. The RV pressure was 25/4. The PA pressure was 26/10. The pulmonary capillary wedge pressure was 6. The cardiac output by thermodilution method was 2.1 L/min with a cardiac index of 1.4 L/m2. During the procedure, the patient was in atrial fibrillation with moderate rapid ventricular rate. CORONARY ANATOMY: 1. The coronary arteries were of moderate to small caliber diffusely. 2. The left mainstem had mild diffuse tapering. There was no evidence of ventricularization or pressure damping with catheter engagement. The left main did appear to have diffuse 20% narrowing. 3. The left anterior descending artery and its branches had mild irregularities. No obstructive lesions were seen. 4. The left circumflex artery gave rise to 2 moderate-size obtuse marginal branches. They were both free of disease. Within the midportion of the circumflex, there was a 40% stenosis noted. 5. The right coronary artery was of moderate size and dominant. This had mild irregularities noted in its proximal segment. LEFT VENTRICULOGRAPHY: A left ventriculogram was performed with power injection in the LUNDBERG projection. This revealed a fairly small left ventricular cavity size with fairly normal left ventricular function. Imaging was limited due to ventricular ectopy and underlying atrial fibrillation with a moderate rate. The left atrium did appear enlarged and mild to moderate mitral regurgitation was present. There was no aortic valve gradient noted on catheter pullback. RIGHT FEMORAL ARTERIOGRAM: The right femoral arteriogram was performed in the TOMAS projection. This revealed appropriate level of arterial puncture. There did appear to be some degree of external iliac artery spasm at the distal end of the sheath. The puncture site was then closed with deployment of a Mynx device. The right femoral vein catheter was removed and manual pressure applied to achieve adequate hemostasis. CONCLUSION: 1. Mild diffuse coronary artery disease with no obstructive stenosis noted. 2. Relatively normal left ventricular systolic function. 3. Mild to moderate mitral regurgitation. 4. Normal right heart pressures. RECOMMENDATIONS: At this time, medical therapy and intensified rate-control therapy appears most appropriate. Follow up assessment of the mitral valve can be performed with either repeat echocardiography or transesophageal echocardiogram. Sodium restriction will be advised. Azam Najera MD MTDD
--- NOTE | 2018-01-18 15:29 | PN ---
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 She is scheduled to undergo cardiac catheterization this morning. She feels significantly better. Dyspnea is improved. She is able to lie flat. CURRENT MEDICATIONS: Remain Lasix 40 mg daily, potassium 20 mEq b.i.d., metoprolol 100 mg b.i.d., Lovenox on hold, Synthroid 50 mcg daily and Xanax p.r.n. OBJECTIVE GENERAL: She is an anxious-appearing, middle-aged woman. VITAL SIGNS: Blood pressure is 126/68 with a pulse of 90 to 110, in atrial fibrillation; respirations are 14. She is afebrile. HEENT: No JVD. CHEST: A few scattered rhonchi heard. HEART: PMI displaced laterally with systolic murmur noted at the apex. ABDOMEN: Soft and nontender with normoactive bowel sounds. EXTREMITIES: No edema. DIAGNOSTIC DATA Potassium 4.4, BUN and creatinine of 20 and 1. IMPRESSION 1. Recent congestive heart failure, acute, likely combined systolic and diastolic. 2. Atrial fibrillation with rapid ventricular response, recent onset. 3. Moderately severe mitral regurgitation and history of severe tricuspid regurgitation on echocardiography. 4. Bilateral pleural effusions, clinically improved. 5. Pulmonary nodule. RECOMMENDATIONS: Her current medications will be continued for now. A right and left heart catheterization will performed this morning and further plans will be made based upon those results. Azam Najera MD [facility]ENTERCarlos Alberto
[2018-01-18] MEDS: Digoxin 250 mcg (0.25 mg) Tab PO SCH ×2 (16:08→21:50)
[2018-01-18] MEDS: Enoxaparin 60 mg Syringe SC SCH (21:51)
[2018-01-18 21:54] VITALS: PULSE 87
[2018-01-19 00:38] VITALS: RESP 20
[2018-01-19] MEDS: Levothyroxine 50 MCG TAB PO SCH (05:52)
[2018-01-19 06:28] VITALS: O2SAT 96
--- NOTE | 2018-01-19 08:15 | CP.PCM.PN ---
Subjective - Date & Time of Evaluation Date of Evaluation: 01/19/18 Time of Evaluation: 07:00 - Subjective Subjective: Stable on 2R. S/P cath. Results noted. I discussed the cath with Dr. Najera. She feels much better. No CP or sob. V/S noted AF, mod VR 74 - 96 BPM PE: Lungs: clear. Cor.: irreg S1S2, sys. murmur Abd.: soft Ext.; no edema Neuro.; alert Labs 01/18 noted. ECG 01/14: AF, No change LE ophelia Dopps: No DVT Chest CT: No PE, etc cath report noted. Objective - Vital Signs/Intake and Output Vital Signs (last 24 hours): Temp Pulse Resp BP Pulse Ox 98.4 F 72 20 115/59 L 96 01/19/18 06:00 01/19/18 06:00 01/19/18 06:00 01/19/18 06:00 01/19/18 06:00 Intake and Output: 01/19/18 01/19/18 06:59 18:59 Intake Total 480 Balance 480 - Medications Medications: Current Medications Alprazolam (Xanax) 0.25 mg PO HS PRN; Protocol PRN Reason: Sleep Stop: 01/20/18 22:01 Last Admin: 01/16/18 21:55 Dose: 0.25 mg Digoxin (Digoxin) 0.125 mg PO 1400 [facility] Furosemide (Lasix) 40 mg IVP DAILY [facility] Last Admin: 01/18/18 10:40 Dose: 40 mg Levothyroxine Sodium (Synthroid) 50 mcg PO 0600 [facility] Last Admin: 01/19/18 05:52 Dose: 50 mcg Metoprolol Tartrate (Lopressor) 100 mg PO BID [facility] Last Admin: 01/18/18 18:53 Dose: Not Given Potassium Chloride (K-Dur 20 Meq Er Tab) 20 meq PO BID [facility] Last Admin: 01/18/18 18:52 Dose: 20 meq - Labs Labs: 01/18/18 06:15 PT 11.9 SECONDS (9.4-12.5) 01/18/18 06:15 INR 1.03 (0.93-1.08) 01/18/18 06:15 APTT 29.0 Seconds (25.1-36.5) 01/18/18 06:15 Assessment and Plan - Assessment and Plan (Free Text) Assessment: Dyspnea, improved AF with RVR, improved Mod severe MR and severe TR on echo with only mild to moderate MR on cath and NL RH pressures with mild LVD. Pleural effusions, moderate, bilateral, improved Hypothyroidism Pulmonary nodule Plan: Continue metoprolol to 100 BID and digoxin. Lasix IV today > PO on D/C home. PO KCL D/C Lovenox. Eliquis 5 BID as out-pt OOB/ambulate prior to d/c home Echo today Pt is planning surgical evaluation by Dr. Bernabe on Tuesday but MVR is not recommended at this time. I told this to her and her sons. cath report and cine provided as per their request. Out-pt cardiac F/U planned for next week.
[2018-01-19] MEDS: Potassium Chloride 20 mEq ER Tab PO SCH (09:49)
[2018-01-19] MEDS ORDERED: Pneumococcal 23-Valent Vaccine IM ONE (10:31)
--- NOTE | 2018-01-19 11:46 | CARD ---
APPROVED REPORT EXAM: Two-dimensional and M-mode echocardiogram with Doppler and color Doppler. Other Information Quality : GoodRhythm : INDICATION Pleural Effusion Atrial Fibrillation MR/TR 2D DIMENSIONS Left Atrium (2D)4.2 (1.6-4.0cm)IVSd1.1 (0.7-1.1cm) LVDd3.4 (3.9-5.9cm)PWd1.0 (0.7-1.1cm) LVDs2.4 (2.5-4.0cm)FS (%) 29.1 % LVEF (%)57.0 (>50%) M-Mode DIMENSIONS Aortic Root2.30 (2.2-3.7cm)Aortic Cusp Exc.1.60 (1.5-2.0cm) Aortic Valve AoV Peak Eerolirn633.0cm/Cecilio Peak GR.5mmHg Mitral Valve E/A ratio0.0 TDI E/Lateral E'0.0E/Medial E'0.0 Tricuspid Valve TR Peak [id number] [id number] Peak Gr.24mmHg [id number] LEFT VENTRICLE The left ventricle is normal size. There is normal left ventricular wall thickness. The left ventricular function is normal. The left ventricular ejection fraction is within the normal range. There is normal LV segmental wall motion. RIGHT VENTRICLE The right ventricle is normal size. ATRIA The left atrium is mildly dilated. The right atrium size is normal. The interatrial septum is intact with no evidence for an atrial septal defect. AORTIC VALVE The aortic valve is normal in structure. MITRAL VALVE The mitral valve is normal in structure. Mitral regurgitation is moderate. TRICUSPID VALVE The tricuspid valve is normal in structure. There is moderate tricuspid regurgitation. PULMONIC VALVE The pulmonic valve is not well visualized. GREAT VESSELS The aortic root is normal in size. PERICARDIAL EFFUSION There is no pericardial effusion. <Conclusion> The left ventricle is normal size. There is normal left ventricular wall thickness. The left ventricular function is normal. Mitral regurgitation is moderate. There is moderate tricuspid regurgitation.
[2018-01-19 12:59] VITALS: BP 106/64; PULSE 92; TEMP 98.1
[2018-01-19] MEDS ORDERED: Digoxin 125 mcg (0.125 mg) Tab PO SCH (14:00)
--- NOTE | 2018-01-20 09:44 | DS ---
SUBJECTIVE: The patient has no complaints of any chest pain. No shortness of breath. No headaches or dizziness. She was initially admitted the hospital because of her CHF. The patient had acute CHF and bilateral pleural effusion. She was placed on IV diuretic therapy and had improvement of her symptoms. The patient has no complaints of any headache or dizziness. She had a cardiac cath done by Dr. Najera. She was found to have mild diffuse coronary artery disease with no obstructive stenosis that was noted. PHYSICAL EXAMINATION: VITAL SIGNS: Temperature is 98.1, pulse of 92, blood pressure is 106/64, respirations 20. GENERAL: The patient is lying in bed, flat, comfortable. HEENT: No oral lesion. Anicteric sclerae. Moist mucosa. NECK: No JVD, adenopathy, or thyromegaly. CARDIOVASCULAR: S1 and S2, regular. No murmurs, rubs, or gallops. LUNGS: Clear to auscultation bilaterally. No wheeze, rales, or rhonchi. ABDOMEN: Bowel sounds are positive, soft, nontender, and nondistended. EXTREMITIES: No cyanosis, clubbing, or edema. ASSESSMENT: 1. Acute congestive heart failure secondary to systolic dysfunction. 2. Status post catheterization with nonobstructive coronary artery disease. 3. Atrial fibrillation, on Eliquis. 4. Bilateral pleural effusion, right greater than left, improving. 5. Hypothyroidism, new onset. 6. Axprcncs-zx-rlekyy mitral regurgitation. 7. Severe tricuspid regurgitation. PLAN: The patient is currently comfortable. She is going to be discharged home. She is on Lasix for diuresis. She is going to continue with digoxin. She is on Eliquis for anticoagulation. Dr. Adams had the patient's cardiac meds to her pharmacy. The patient is on Synthroid, which is also new, and this was given as a written prescription to the patient. She is going to continue with metoprolol as well. CONDITION: Stable. ACTIVITIES: Increase as tolerated. FOLLOWUP: Follow up with Dr. Spears in 1 week. Follow up with Dr. Adams in 1 to 2 weeks. Rajan Dorsey MD [facility] # [id number]
== END 2018-01-19 13:30 | disposition home or self-care (01) | DRG 287 ==
LOC: ED 16:33 → ERH 18:53 → 3RSO 20:49 → 2RNO 01-18 09:54
PROVIDERS: ADMIT Internal Medicine Nephrology; ATTEND Internal Medicine Nephrology
PROC: 4A023N8 Measurement of Cardiac Sampling and Pressure, Bilateral, Percutaneous Approach (ICD-10-PCS; principal; 2018-01-18)
PROC: B2111ZZ Fluoroscopy of Multiple Coronary Arteries using Low Osmolar Contrast (ICD-10-PCS; 2018-01-18)
PROC: B2161ZZ Fluoroscopy of Right and Left Heart using Low Osmolar Contrast (ICD-10-PCS; 2018-01-18)
DX: I50.21 Acute systolic (congestive) heart failure (principal); I48.91 Unspecified atrial fibrillation; I25.10 Atherosclerotic heart disease of native coronary artery without angina pectoris; I08.1 Rheumatic disorders of both mitral and tricuspid valves; E03.9 Hypothyroidism, unspecified; R91.1 Solitary pulmonary nodule; D64.9 Anemia, unspecified; R03.0 Elevated blood-pressure reading, without diagnosis of hypertension